=== PATIENT | male | born 1960 | race Caucasian/White ===

== ENCOUNTER 2024-08-10 16:43 | Emergency (ER) | payer MEDICARE, MEDICAID, SELFPAY ==
[2024-08-10 16:45] VITALS: BP 186/75; PULSE 82; RESP 16; TEMP 36.7; O2SAT 97; BMI 28.9
[2024-08-10 17:06] LABS: Bilirubin Urine Negative (Negative); Blood Urine Negative (Negative); Glucose Urine UA 2+ (Normal); Ketones Urine Trace (Negative); Leukocyte Esterase Urine Negative (Negative); Nitrate Urine Negative (Negative); Protein Urine Negative (Negative); Urine Appearance Clear (CLEAR); Urine Color Yellow (Yellow)
[2024-08-10 17:11] LABS: Add Urine Microscopic? YES; Bacteria Urine None Seen /hpf; Hyaline Casts Urine 0-4 /lpf; RBC Urine 0-2 /hpf (0-2); Squamous Epithelial Cell Urine 0-5 /hpf (0-5); WBC Urine 0-5 /hpf (0-5)
[2024-08-10 17:16] LABS: Specific Gravity, Urine 1.037 (1.005-1.030)
[2024-08-10 17:22] LABS: Basophils % 0.4 %; Eosinophils # 0.3 10^3/uL (0.0-0.8); Eosinophils % 2.7 %; Lymphocytes # 3.3 10^3/uL (0.8-4.8); Lymphocytes % 35.5 %; Mean Corpuscular HGB Conc 32.8 g/dL (30-55); Mean Corpuscular Hemoglobin 26.9 pg (27-33); Mean Platelet Volume 10.2 fL (7.4-10.4); Monocytes # 0.9 10^3/uL (0.2-0.9); Monocytes % 9.6 %; Neutrophils # 4.83 10^3/uL (1.8-7.7); Neutrophils % 51.5 %; Nucleated Red Blood Cells % 0 %; Platelet Count 239 10^3/cmm (157-399); Red Blood Count 5.73 10^6/uL (3.85-5.65); Red Cell Distribution Width 13.2 % (12.1-15.1); White Blood Count 9.38 10^3/uL (3.29-11.43)
[2024-08-10 17:45] LABS: Alanine Aminotransferase 28 U/L (0-41); Albumin Level 4.3 g/dL (3.5-5.2); Alkaline Phosphatase 75 U/L (40-130); Anion Gap 19.2 (5-19); Aspartate Amino Transferase 18 U/L (0-40); Blood Urea Nitrogen 28 mg/dL (8-23); Calcium 9.3 mg/dL (8.5-10.5); Carbon Dioxide 21 mmol/L (22-29); Chloride 103 mmol/L (98-107); Creatinine Clr Calc Pharmacy 100.1847; Glomerular Filtration Rate 112.8 mL/min (90-130); Glucose 142 mg/dL (65-115); Lipase 34 U/L (13-60); Osmolality Calculated 296 mOsm/kg (285-295); Potassium 4.2 mmol/L (3.5-5.1); Sodium 139 mmol/L (136-145); Total Bilirubin 0.2 mg/dL (0.15-1.2); Total Protein 7.3 g/dL (6.6-8.7)
--- NOTE | 2024-08-10 19:25 | CTR_ITS ---
PROCEDURE INFORMATION: Exam: CT Abdomen And Pelvis With Contrast Exam date and time: 08/10/2024 7:45 PM Age: 64 years old Clinical indication: Abdominal pain; Localized; Left lower quadrant (llq); C/O llq pain; Additional info: Llq abd pain TECHNIQUE: Imaging protocol: Computed tomography of the abdomen and pelvis with contrast. Radiation optimization: All CT scans at this facility use at least one of these dose optimization techniques: automated exposure control; mA and/or kV adjustment per patient size (includes targeted exams where dose is matched to clinical indication); or iterative reconstruction. Contrast material: OMNI 350; Contrast volume: 100 ml; Contrast route: INTRAVENOUS (IV); COMPARISON: No relevant prior studies available. RADIATION DOSE METRICS: Total DLP (mGy-cm): 698.99 FINDINGS: Lungs: Clear basilar lung parenchyma. Pleural spaces: No pleural fluid. Heart: Normal heart size. Liver: Normal configuration. Homogeneous parenchyma. Gallbladder and biliary ducts: No regional inflammation. No calcified stones. No ductal dilation. Pancreas: No pancreatic edema or mass. Spleen: Normal. No splenomegaly. Adrenal glands: Normal configuration. Kidneys and ureters: Kidneys enhance symmetrically and demonstrate no evidence of solid mass, calculus, obstruction, or inflammation. 1.7 cm simple cyst lower pole left kidney. Stomach and bowel: No obstruction. No mural thickening. No significant diverticular disease. Appendix: Normal appendix is confirmed. Intraperitoneal space: No free air. No significant fluid collection. Vasculature: Mild arterial calcification. No evidence of aneurysm. Patent portal vein. No portal venous gas. Lymph nodes: Mildly increased attenuation noted in the mesenteric root with several scattered non pathologically enlarged lymph nodes. Urinary bladder: Unremarkable as visualized. Reproductive: Physiologic appearance for age. Bones/joints: Lower lumbar spine is notable for degenerative disc and facet disease at L5-S1 causing bilateral neural foraminal stenosis. Spinal canal is adequate. No significant hip arthropathy. No fracture or destructive lesion. Soft tissues: There is increased attenuation in the subcutaneous fat of the left lower abdominal wall without evidence soft tissue gas, foreign body, or fluid collection. Fat containing left indirect inguinal hernia. CT/CT abdomen pelvis w con* [id number] IMPRESSION: 1. There is a fat containing left inguinal hernia which could be symptomatic. 2. Increased attenuation in the skin and subcutaneous fat of the left lower abdominal wall may reflect injection sites but localized cellulitis is not excluded. 3. Increased attenuation noted in the fat of the mesenteric root with several non pathologically enlarged lymph nodes, potentially reflecting mesenteric panniculitis among other etiologies. 4. No evidence of diverticulitis or urolithiasis. 5. Bilateral neural foraminal stenosis at L5-S1. Correlate with any symptoms of radiculopathy. COMMENTS: Consistent with the [employer]'s Incidental Findings Committee white paper (J Am Mckenzie Radiol 2018): Any incidental renal lesion less than 1 cm or classified as too small to characterize, or any incidental cystic renal lesion characterized as simple-appearing, is likely benign. No follow-up imaging is recommended for these lesions per consensus recommendations based on imaging criteria.
--- NOTE | 2024-08-10 19:26 | ED_ITS ---
HPI - Abdominal Pain 2 General: Chief Complaint: Abdominal Pain Stated Complaint: left side abdominal pain Time Seen by Provider: 08/10/24 19:13 History of Present Illness: Patient comes in with abdominal pain. States that for the past 2 days he has had constant left lower quadrant abdominal pain which he describes as cramping. Denies radiation. Denies fever, cough, congestion. Denies any nausea vomiting or diarrhea. States he has had similar pain in the past without a definitive diagnosis. States that a couple years ago he had an upper and lower GI that were unremarkable. Patient has a history of diabetes, high blood pressure, and high cholesterol. Will check labs, CT abdomen pelvis, and reassess. Associated Symptoms: Denies fever(s), nausea and vomiting Related Data Allergies Allergy/AdvReac Type Severity Reaction Status Date / Time No Known Allergies Allergy Verified 08/10/24 16:54 Review of Systems 2 Const: Denies: fever(s) or body aches Eyes: Denies: change in vision or blurry vision ENMT: Denies: throat pain or odynophagia Card: Denies: chest pain or palpitations Resp: Denies: dyspnea or productive cough GI: Reports: abdominal pain; Denies: nausea or vomiting : Denies: flank pain Musc: Denies: neck pain or back pain Skin/Breast: Denies: rash or pruritus Neuro: Denies: headache(s) or numbness in extremities Psych: Denies: anxiety or change in appetite Endo: Denies: polyuria or excessive sweating Physical Exam 2 Const: COMMON NORMALS: no acute distress EXAM LIMITATIONS: no altered mental status GENERAL APPEARANCE: cooperative, comfortable and well developed ORIENTATION/CONSCIOUSNESS: Yes awake HENMT: COMMON NORMALS: normocephalic and atraumatic HEAD & SCALP: n ormocephalic and atraumatic Resp: COMMON NORMALS: normal respiratory effort and No retractions Cardio: COMMON NORMALS: regular rate RATE: regular rate GI: COMMON NORMALS: Normal to inspection, nondistended, normoactive bowel sounds present, Soft to palpation and non-tender PALPATION: Yes Soft to palpation Extremity: COMMON NORMALS: normal to inspection and full ROM Course 2 Vital Signs: Vital signs: Vital Signs Temperature 98.0 F 08/10/24 16:45 Pulse Rate 65 08/10/24 21:07 Respiratory Rate 16 08/10/24 16:45 Blood Pressure 165/87 08/10/24 21:07 Pulse Oximetry 97 08/10/24 21:07 Oxygen Delivery Me thod Room Air 08/10/24 19:33 MDM - Abdominal Pain Medical Decision Making On reassessment I talked with the patient about his test results. His CT scan shows a fat-containing left inguinal hernia which I suspect is likely causing his pain. The increased attenuation of subcutaneous fat along the left lower abdominal wall is where he does his insulin injections regularly. There is no redness or tenderness. Will refer him to surgery for the hernia defect, and discharged at this time with precautions to return for worsening or changing symptoms. We discussed symptoms that should prompt immediate return to the emergency department including worsening of the hernia pain. Lab Data 08/10/24 17:16 08/10/24 17:16 Labs/Radiology: Radiology Impressions Abdomen/Pelvis CT 08/10/24 19:25 IMPRESSION: 1. There is a fat containing left inguinal hernia which could be symptomatic. 2. Increased attenuation in the skin and subcutaneous fat of the left lower abdominal wall may reflect injection sites but localized cellulitis is not excluded. 3. Increased attenuation noted in the fat of the mesenteric root with several non pathologically enlarged lymph nodes, potentially reflecting mesenteric panniculitis among other etiologies. 4. No evidence of diverticulitis or urolithiasis. 5. Bilateral neural foraminal stenosis at L5-S1. Correlate with any symptoms of radiculopathy. COMMENTS: Consistent with the [employer]'s Incidental Findings Committee white paper (J Am Mckenzie Radiol 2018): Any incidental renal lesion less than 1 cm or classified as too small to characterize, or any incidental cystic renal lesion characterized as simple-appearing, is likely benign. No follow-up imaging is recommended for these lesions per consensus recommendations based on imaging criteria. Laboratory Results WBC 9.38 10^3/uL (3.29-11.43) 08/10/24 17:16 RBC 5.73 10^6/uL (3.85-5.65) H 08/10/24 17:16 Hgb 15.40 g/dL (11.27-16.99) 08/10/24 17:16 Hct 47.0 % (37-53) 08/10/24 17:16 MCV 82.0 fl (82-101) 08/10/24 17:16 MCH 26.9 pg (27-33) L 08/10/24 17:16 MCHC 32.8 g/dL (30-55) 08/10/24 17:16 RDW 13.2 % (12.1-15.1) 08/10/24 17:16 Plt Count 239 10^3/cmm (157-399) 08/10/24 17:16 MPV 10.2 fL (7.4-10.4) 08/10/24 17:16 Neut % (Auto) 51.5 % 08/10/24 17:16 Lymph % (Auto) 35.5 % 08/10/24 17:16 [place] % (Auto) 9.6 % 08/10/24 17:16 Eos % (Auto) 2.7 % 08/10/24 17:16 Baso % (Auto) 0.4 % 08/10/24 17:16 Neut # (Auto) 4.83 10^3/uL (1.8-7.7) 08/10/24 17:16 Lymph # (Auto) 3.3 10^3/uL (0.8-4.8) 08/10/24 17:16 [place] # (Auto) 0.9 10^3/uL (0.2-0.9) 08/10/24 17:16 Eos # (Auto) 0.3 10^3/uL (0.0-0.8) 08/10/24 17:16 Baso # (Auto) 0.0 10^3/uL (0.0-0.1) 08/10/24 17:16 Nucleated RBC % (auto) 0 % 08/10/24 17:16 Nucleated RBCs # 0.0 /100WBC 08/10/24 17:16 Sodium 139 mmol/L (136-145) 08/10/24 17:16 Potassium 4.2 mmol/L (3.5-5.1) 08/10/24 17:16 Chloride 103 mmol/L (98-107) 08/10/24 17:16 Carbon Dioxide 21 mmol/L (22-29) L 08/10/24 17:16 Anion Gap 19.2 (5-19) H 08/10/24 17:16 BUN 28 mg/dL (8-23) H 08/10/24 17:16 Creatinine 0.7 mg/dL (0.7-1.2) 08/10/24 17:16 GFR Calculation 112.8 mL/min (90-130) 08/10/24 17:16 Glucose 142 mg/dL (65-115) H 08/10/24 17:16 Calculated Osmolality 296 mOsm/kg (285-295) H 08/10/24 17:16 Calcium 9.3 mg/dL (8.5-10.5) 08/10/24 17:16 Total Bilirubin 0.2 mg/dL (0.15-1.2) 08/10/24 17:16 AST 18 U/L (0-40) 08/10/24 17:16 ALT 28 U/L (0-41) 08/10/24 17:16 Alkaline Phosphatase 75 U/L (40-130) 08/10/24 17:16 Total Protein 7.3 g/dL (6.6-8.7) 08/10/24 17:16 Albumin 4.3 g/dL (3.5-5.2) 08/10/24 17:16 Globulin 3.0 g/dL (1.3-4.6) 08/10/24 17:16 Lipase 34 U/L (13-60) 08/10/24 17:16 Urine Color Yellow (Yellow) 08/10/24 16:58 Urine Appearance Clear (CLEAR) 08/10/24 16:58 Urine pH 6.0 (5-7) 08/10/24 16:58 Ur Specific [place] 1.037 (1.005-1.030) H 08/10/24 16:58 Urine Protein Negative (Negative) 08/10/24 16:58 Urine Glucose (UA) 2+ (Normal) H 08/10/24 16:58 Urine Ketones Trace (Negative) 08/10/24 16:58 Urine Blood Negative (Negative) 08/10/24 16:58 Urine Nitrate Negative (Negative) 08/10/24 16:58 Urine Bilirubin Negative (Negative) 08/10/24 16:58 Urine Urobilinogen 1.0 mg/dL (Negative) 08/10/24 16:58 Ur Leukocyte Esterase Negative (Negative) 08/10/24 16:58 Urine RBC 0-2 /hpf (0-2) 08/10/24 16:58 Urine WBC 0-5 /hpf (0-5) 08/10/24 16:58 Ur Squamous Epith Cells 0-5 /hpf (0-5) 08/10/24 16:58 Amorphous Sediment Not Reportable 08/10/24 16:58 Urine Bacteria None seen /hpf (NONE) 08/10/24 16:58 Hyaline Casts 0-4 /lpf H 08/10/24 16:58 All radiology interpretation(s) finalized by discharge Discharge Plan Discharge Patient Disposition: Home Clinical Impression: Inguinal hernia Condition: Stable Discharge Orders: Discharge ED (Routine); Ordered 08/10/24 Ordered By: Manish Estrella Referrals: Aida Sanchez MD [Physician, General Surgery] Patient Instructions: Opioid Safety, Pain Management Print Language: Italian Coding Level of Care Code ED Human Resource Manager for Nae Moraes
[2024-08-10 19:33] VITALS: BP 185/76; PULSE 73; O2SAT 100
[2024-08-10] MEDS: iohexol 350 mg/mL 500 mL Btl (per mL) IV (19:46)
[2024-08-10] MEDS: ketorolac 30 mg/mL INJ 15 MG IVP (19:59)
[2024-08-10 20:29] VITALS: BP 169/92; PULSE 66; O2SAT 98
[2024-08-10 21:07] VITALS: BP 165/87; PULSE 65; O2SAT 97
[2024-08-10 21:42] VITALS: RESP 18; O2SAT 97
[2024-08-10] MEDS: morphine 4 mg/mL SDV 1 mL 2 MG IVP (21:42)
[2024-08-10 22:05] VITALS: BP 154/89; PULSE 61; O2SAT 95
== END 2024-08-10 22:06 | disposition home or self-care (01) ==
PROVIDERS: Physician Assistant; Emergency Provider Emergency Medicine
DX: K40.90 Unilateral inguinal hernia, without obstruction or gangrene, not specified as recurrent (principal)
CPT/HCPCS: 36415; 74177; 80053; 81001; 83690; 85025; 96374; 96375; 99285; J1885; J2270

== ENCOUNTER 2024-08-12 23:07 | Emergency (ER) | payer MEDICARE, MEDICAID, SELFPAY ==
[2024-08-12 23:20] VITALS: BP 187/79; PULSE 83; RESP 16; TEMP 36.6; O2SAT 98; BMI 28.9
--- NOTE | 2024-08-12 23:49 | ED_ITS ---
HPI - Abdominal Pain 2 General: Chief Complaint: Abdominal Pain Stated Complaint: Hernia and Pain is Worst Time Seen by Provider: 08/12/24 23:26 Source: patient Mode of arrival: ambulatory Limitations: no limitations History of Present Illness: Patient is a 64-year-old male that presents to the emergency department with worsening left sided abdominal pain. He states he was seen for this on Tuesday night and was diagnosed with a fat-containing inguinal hernia.. He denies any pain down in his groin but does state that he has pain starting from his back moving around to his left abdominal wall. He does have a rash that appeared this evening. He denies any fever or chills. He denies any nausea or vomiting. He presents to the emergency department for further evaluation and treatment. Associated Symptoms: Denies chills, dysuria, fever(s), nausea and vomiting Related Data Previous Rx's ?Medication ?Instructions ?Recorded hydrocodone 5 mg-acetaminophen 325 1 - 2 tab PO .q4-6H PRN pain #14 08/13/24 mg tablet tabs valacyclovir 1 gram tablet 1,000 mg PO TID 7 days #21 tabs 08/13/24 Allergies Allergy/AdvReac Type Severity Reaction Status Date / Time No Known Allergies Allergy Verified 08/10/24 16:54 Review of Systems 2 Const: Denies: fever(s) or chills Eyes: Denies: change in vision or blurry vision ENMT: Denies: throat pain or ear or mastoid pain Card: Denies: chest pain Resp: Reports: non-productive cough (Mild cough); Denies: dyspnea, productive cough or wheezing GI: Reports: abdominal pain (Left lateral abdomen); Denies: nausea or vomiting : Denies: difficulty urinating or dysuria Musc: Reports: back pain (Mid to lower back on the left) Skin/Breast: Reports: rash (Erythematous rash on the left side starting at the back and wrapping around) and skin tenderness Neuro: Denies: headache(s), numbness in extremities or weakness in extremities Psych: Denies: anxiety or depression Endo: Denies: polyuria or polydipsia Walter/Lymph: Denies: easy bruising, easy bleeding or petechiae All/Imm: Denies: tongue swelling PFSH ED 2 PFSH: Medical History (Updated 08/13/24 @ 00:03 by MAHESH Sheikh) Essential hypertension Diabetes mellitus History of chickenpox Inguinal hernia Social History (Updated 08/12/24 @ 23:55 by MAHESH Sheikh) Smoking and tobacco/nicotine status: former use of tobacco/nicotine Physical Exam 2 Const: COMMON NORMALS: patient oriented x3 and alert GENERAL APPEARANCE: c ooperative ORIENTATION/CONSCIOUSNESS: Yes awake HENMT: COMMON NORMALS: normocephalic, atraumatic, external ears normal, EAC's normal, TM's normal bilaterally and Normal external nose present HEAD & SCALP: normocephalic and atraumatic NOSE: Normal external nose present E XTERNAL EAR: Yes external ears normal EXTERNAL AUDITORY CANAL: EAC's normal TYMPANIC MEMBRANE: TM's normal bilaterally MOUTH: Normal oral and palatal mucosa present Eye: COMMON NORMALS: conjunctivae normal CONJUNCTIVA: Yes conjunctivae normal Neck/C-Spine: COMMON NORMALS: full ROM and no meningeal signs Resp: COMMON NORMALS: normal respiratory effort, No retractions and clear to auscultation bilaterally AUSCULTATION: clear to auscultation bilaterally, no crackles, no rales, no rhonchi and no wheezes Cardio: COMMON NORMALS: regular rate and regular rhythm RATE: regular rate RHYTHM: regular rhythm GI: COMMON NORMALS: Normal to inspection, nondistended, normoactive bowel sounds present and Soft to palpation INSPECTION: Yes other (Splotchy rash following dermatomal distribution on the left) AUSCULTATION: Yes normoactive bowel sounds PALPATION: Yes Soft to palpation RECTAL EXAM: Yes deferred GI image (male): 1. Splotchy, erythematous rash following dermatomal distribution. : COMMON NORMALS: Yes no CVA tenderness BLADDER/KIDNEY EXAM: Yes no CVA tenderness Back/Pelvis: COMMON NORMALS: no CVA tenderness Extremity: COMMON NORMALS: normal to inspection, full ROM, no calf tenderness and no pedal edema Neuro: COMMON NORMALS: patient oriented x3 SENSORIUM/ORIENTATION: Yes alert MENINGEAL SIGNS: Yes no meningeal signs Psych: COMMON NORMALS: cooperative ATTITUDE: Yes calm Skin: NARRATIVE SKIN EXAM: Splotchy, erythematous rash noted in a dermatomal distribution on the left where the patient's pain is. SKIN IMAGES (MALE): 1. Spotty erythematous rash 2. Spotty erythematous rash Course 2 ED course: Dr. Estrella came and evaluated the patient since he had seen him on Tuesday night. He noted the rash on the abdominal wall extending around to the low back following a dermatomal distribution. This is consistent with shingles and the recommended treatment. Vital Signs: Vital signs: Vital Signs Temperature 97.8 F 08/12/24 23:20 Pulse Rate 83 08/12/24 23:20 Respiratory Rate 18 08/12/24 23:58 Blood Pressure 187/79 08/12/24 23:20 Pulse Oximetry 98 08/12/24 23:20 Oxygen Delivery Me thod Room Air 08/12/24 23:20 MDM - Abdominal Pain Medical Decision Making Patient was advised of the exam findings. He does appear to have shingles. The rash just started today and so we are within the timeframe to treat with antivirals. Patient did take some Tylenol about 3 hours ago so we cannot give him hydrocodone with acetaminophen here in the emergency department. He was given an IM shot of morphine for pain control and started on valacyclovir. I recommended he continue taking the valacyclovir as directed for the next 7 days and follow-up with his primary care provider. The patient's states she has an appointment with her primary care provider on Tuesday and she will have him follow-up instead. Patient was advised to avoid females, people who have not had chickenpox before, and immunocompromised people as he can spread the virus to them. I recommended that he follow-up as instructed and return to the emergency department with any worsening symptoms. The patient expressed understanding. Medical Records I reviewed the patient's medical records. No radiology studies performed this visit Critical Care Time 2 Critical Care Time: Critical Care Time: No Discharge Plan Discharge Patient Disposition: Home Clinical Impression: Shingles Qualifiers: Herpes zoster complications: without complications Qualified Code(s): B02.9 - Zoster without complications Condition: Stable Prescriptions: New valacyclovir 1 gram tablet 1,000 mg PO TID 7 Days Qty: 21 0RF hydrocodone-acetaminophen 5-325 mg tablet 1 - 2 tab PO .q4-6H PRN (Reason: pain) Qty: 14 0RF Rx Instructions: No alcohol use, driving or additional Tylenol with this medication Discharge Orders: Discharge ED (Routine); Ordered 08/13/24 Ordered By: Daniel Ruff Discharge Diet: Usual diet Discharge Activity: Resume usual activity Patient Instructions: Shingles (ED), Opioid Safety, Pain Management Activity Restrictions/Additional Instructions: Take the medications as directed. Your prescriptions were sent electronically to the [facility] in [facility]. Avoid activities make the pain worse. See the attached information on shingles. Use an [id number] stool softener such as MiraLAX or Colace to prevent constipation from the pain medications. Follow-up with your doctor on Tuesday as scheduled. Try and avoid contact with anybody that may be , immunocompromise patients or anybody that has not had chickenpox until your rash is completely scabbed over. Return to the emergency department with any worsening symptoms such as fever, vomiting, worsening pain or any other worsening symptoms. Print Language: Sri [place]an Coding Level of Care Code ED [place] for Nae Moraes
[2024-08-12] MEDS: ondansetron hcl ODT 4 mg Tab PO (23:57)
[2024-08-12 23:58] VITALS: RESP 18
[2024-08-12] MEDS: morphine 4 mg/mL SDV 1 mL IM (23:58)
[2024-08-13] MEDS: valACYclovir 1,000 mg Tablet 1000 MG PO (00:01)
[2024-08-13 00:29] VITALS: BP 171/89; PULSE 75; RESP 16; O2SAT 96
== END 2024-08-13 00:25 | disposition home or self-care (01) ==
PROVIDERS: Emergency Provider Physician Assistant
DX: B02.9 Zoster without complications (principal); Z87.891 Personal history of nicotine dependence; E11.9 Type 2 diabetes mellitus without complications; I10 Essential (primary) hypertension
CPT/HCPCS: 96372; 99284; J2270; J9999; Q0162